=== PATIENT | female | born 1965 | race Two or more races ===

== ENCOUNTER 2021-08-16 17:43 | Emergency (ER) | payer BC ==
[2021-08-16 17:51] VITALS: BP 108/74; PULSE 65; TEMP 98.5; BMI 27.4
[2021-08-16] MEDS ORDERED: ACETAMINOPHEN 1000 MG/100 ML VIAL IVPB ONE (18:15)
[2021-08-16] MEDS ORDERED: SODIUM CHLORIDE 1,000 ML IV STA (18:15)
[2021-08-16] MEDS ORDERED: ONDANSETRON 4 MG/2 ML VIAL IVPUSH ONE (18:15)
[2021-08-16] MEDS ORDERED: ACETAMINOPHEN INJECTION 100 ML IVPB ONE (18:28)
[2021-08-16] MEDS ORDERED: ONDANSETRON 4 MG/2 ML VIAL ONE (18:28)
[2021-08-16 18:41] LABS: BASO % 3.8 % (0-2.0); EOS % 0.7 % (0-4.5); HEMOGLOBIN 11.9 GM/dl (10.7-15.3); LYMPH % 26.2 % (8-40); MCH 25.6 pg (25.7-33.7); MCHC 33.1 g/dl (32.0-36.0); MEAN CELL VOLUME 77.5 fl (80-96); MEAN PLT VOLUME 8.1 fl (7.5-11.1); MONO % 6.9 % (3.8-10.2); NEUT % 62.4 % (42.8-82.8); PLATELET COUNT 310 10^3/uL (134-434); RBC 4.64 M/mm3 (3.60-5.2); RDW 15.6 % (11.6-15.6)
[2021-08-16 18:49] LABS: BILIRUBIN,TOTAL 0.5 mg/dl (0.2-1); CALCIUM 8.4 mg/dl (8.5-10); CREATININE 0.6 mg/dl (0.55-1.3); TOT PROT 7.2 g/dl (6.4-8.2)
[2021-08-16] MEDS ORDERED: MAGNESIUM CITRATE 300 ML BOTTLE PO ONE (21:27)
[2021-08-16] MEDS ORDERED: MAGNESIUM CITRATE 300 ML BOTTLE ONE (21:28)
== END 2021-08-16 21:39 | disposition home or self-care (01) ==
LOC: FER 17:43
PROC: 3E033NZ Introduction of Analgesics, Hypnotics, Sedatives into Peripheral Vein, Percutaneous Approach (ICD-10-PCS; principal; 2021-08-16)
PROC: 3E033GC Introduction of Other Therapeutic Substance into Peripheral Vein, Percutaneous Approach (ICD-10-PCS; 2021-08-16)
PROC: 3E0337Z Introduction of Electrolytic and Water Balance Substance into Peripheral Vein, Percutaneous Approach (ICD-10-PCS; 2021-08-16)
DX: R11.0 Nausea (principal); R10.32 Left lower quadrant pain; K59.00 Constipation, unspecified
CPT/HCPCS: 36415; 74177-TC; 80053; 81003; 84703; 85025; 87086; 99285-25; C9803; J0131; Q9967; U0003; U0005